=== PATIENT | female | born 1970 | race Caucasian/White ===

== ENCOUNTER 2017-06-20 17:22 | Emergency (ER) | payer MEDICAID ==
[~2017-06-20] VITALS: Ht 147.3 cm; Wt 63.5 kg
[2017-06-20 17:24] VITALS: BP 126/74
--- NOTE | 2017-06-20 17:40 | NUR ---
PT AMBULATES TO BED 2
--- NOTE | 2017-06-20 17:43 | NUR ---
PATIENT BIBA -BLS. PT C/O THROAT AND EYE IRRITATION. REPORTS THERE WAS A SMALL EXPLOSION AT WORK 3 DAYS AGO. DIDNT RECIEVE TX THEN, NOW C/O BL EYE AND THROAT IRRIATION. DENIES SOB. RESP EVEN AND UNLABORED. SPEAKING FULL CLR SENTENCES MED HX: DEPRESSION RX: UNKNOWN NAME OF MED FOR DEPRESSION; DENIES N/V/D; SKIN IS PINK/WARM/DRY; AAOX4 WITH EVEN AND STEADY GAIT; LUNGS CLEAR BL; HR EVEN AND REGULAR; PT DENIES ANY FEVER, CP, SOB, OR COUGH AT THIS TIME; PATIENT STATES PAIN OF 7/10 AT THIS TIME; VSS; PATIENT POSITIONED FOR COMFORT; HOB ELEVATED; BEDRAILS UP X2; BED DOWN. ER MD MADE AWARE OF PT STATUS.
--- NOTE | 2017-06-20 19:26 | NUR ---
REPORT GIVEN TO VEENA GARCIA
[2017-06-20] MEDS ORDERED: KETOROLAC 60 MG/2 ML VIAL IM ONE (20:55)
[2017-06-20 22:05] VITALS: BP 119/80
--- NOTE | 2017-06-20 22:05 | NUR ---
Patient discharged with v/s stable. Written and verbal after care instructions given and explained. Patient alert, oriented and verbalized understanding of instructions. Ambulatory with steady gait. All questions addressed prior to discharge. ID band removed. Patient advised to follow up with PMD. Rx of MOTRIN 600MG, PREDNISONE 20 MG AND ZOFRAN 8MG given. Patient educated on indication of medication including possible reaction and side effects. Opportunity to ask questions provided and answered.
== END 2017-06-20 22:05 | disposition home or self-care (01) ==
LOC: MED 17:22
DX: J02.9 Acute pharyngitis, unspecified (principal); R11.2 Nausea with vomiting, unspecified; J45.909 Unspecified asthma, uncomplicated
CPT/HCPCS: 96372; 99283; J1885